=== PATIENT | male | born 1945 | race Caucasian/White ===

== ENCOUNTER 2023-02-20 12:16 | Emergency (ER) | payer MEDICARE, SELFPAY ==
[2023-02-20 12:29] VITALS: BP 163/73; PULSE 82; RESP 20; TEMP 38.1; O2SAT 92; BMI 31.6
--- NOTE | 2023-02-20 12:51 | CRLHL7_ITS ---
For Patients: As a result of the Century Cures Act, medical imaging exams and procedure reports are released immediately into your electronic medical record. You may view this report before your referring provider. If you have questions, please contact your health care provider. INDICATION: Fell on face TECHNIQUE: CT head without contrast. COMPARISON: None. FINDINGS: CSF spaces: Within normal limits for age. Brain parenchyma: No intracranial bleed or mass effect. Diffuse cerebral atrophy. Paredes-white differentiation is distinct. Skull base and calvarium: Left orbital floor fracture with depression of the orbital floor 4 millimeters (series 8, image 31). Small hematoma along the orbital floor. Atherosclerosis. IMPRESSION: 1. Left orbital floor fracture with depression of the orbital floor 4 millimeters and small hematoma along the orbital floor. 2. Diffuse cerebral atrophy. Please note that all CT scans at this facility use dose modulation, iterative reconstruction, and/or weight-based dosing when appropriate to reduce radiation dose to as low as reasonably achievable. Dictated by Elvin Rasheed MD @ 02/20/2023 2:12:28 PM (Electronically Signed)
--- NOTE | 2023-02-20 12:51 | CRLHL7_ITS ---
For Patients: As a result of the Cures Act, medical imaging exams and procedure reports are released immediately into your electronic medical record. You may view this report before your referring provider. If you have questions, please contact your health care provider. INDICATION: Fall on face TECHNIQUE: CT cervical spine without contrast. COMPARISON: None FINDINGS: Vertebrae: Alignment is normal. There are no fractures or suspicious bony lesions. Discs and facet joints: Facet hypertrophy C2-3 without significant stenosis. Facet hypertrophy C3-4 causing mild bilateral foraminal stenosis. Facet hypertrophy C4-5 without significant stenosis facet hypertrophy with disc space narrowing and posterior osteophytes at C5-6 causing mild bilateral foraminal stenosis. Facet hypertrophy with posterior osteophytes at C6-7 causing mild left foraminal stenosis facet hypertrophy C7-T1 without significant stenosis. Extraspinal findings: Ossicle in the nuchal ligament. Atherosclerosis. IMPRESSION: Multilevel degenerative changes cervical spine without evidence of cervical spine fracture. Please note that all CT scans at this facility use dose modulation, iterative reconstruction, and/or weight-based dosing when appropriate to reduce radiation dose to as low as reasonably achievable. Dictated by Elvin Rasheed MD @ 02/20/2023 2:16:19 PM (Electronically Signed)
--- NOTE | 2023-02-20 12:59 | ED_ITS ---
HPI - Head Injury General Chief complaint: Head Injury/Pain Stated complaint: Fall onto face Time Seen by Provider: 02/20/23 12:17 History of Present Illness HPI Narrative: Patient is a 77-year-old gentleman who is not on blood thinners and does not take aspirin who was trying to walk his dog while pushing his recycling bin across his yd proximally an hour ago. Patient stumbled and fell to the ground striking his face on the soft dirt and grass. Patient was able to get himself up and again when he was pushing the recycling bin with a dog in toe he stumbled on the driveway again falling anteriorly striking his face. He has abrasions over the forehead nose and zygomatic arch bilaterally. He has no epistaxis. He has no loose teeth. He does not feel like he bit his tongue. He did not lose consciousness. His saw him fall the 2nd time and helped him up and brought him to the emergency room where his GCS is 15. He is completely oriented and is able to answer questions. He has only minimal pain and has no neck pain. EKG upon arrival shows normal sinus rhythm without acute ST or T-wave changes. Related Data Home Medications Medication Instructions Recorded Confirmed amlodipine 10 mg tablet 10 mg PO DAILY 02/20/23 02/20/23 atenolol 50 mg tablet 50 mg PO DAILY 02/20/23 02/20/23 atorvastatin 20 mg tablet 20 mg PO DAILY 02/20/23 02/20/23 blood sugar diagnostic (OneTouch 02/20/23 02/20/23 Verio test strips) celecoxib 200 mg capsule 200 mg PO DAILY 02/20/23 02/20/23 metformin 500 mg tablet,extended 1,000 mg PO BID 02/20/23 02/20/23 release 24 hr Allergies Allergy/AdvReac Type Severity Reaction Status Date / Time Sulfa (Sulfonamide Allergy Verified 02/20/23 12:28 Antibiotics) tetanus toxoid, adsorbed Allergy Verified 02/20/23 12:28 Review of Systems Status of ROS: Reports: 10 or more systems reviewed and unremarkable except as noted in History and below [facility] Medical History Hyperlipidemia ?E78.5 - Hyperlipidemia, unspecified (ICD-10) Diabetes mellitus ?E11.9 - Type 2 diabetes mellitus without complications (ICD-10) Hypertension ?I10 - Essential (primary) hypertension (ICD-10) Social History Smoking Status: Former smoker Do you use any of these nicotine containing products: None Second hand tobacco smoke exposure: No How often do you have a drink containing alcohol: monthly or less How often do you have six or more drinks on one occasion: Never AUDIT-C Alcohol total score: 1 Non-prescribed substance use: denies use service: No Exam Narrative: Exam Narrative: EXAM GENERAL: Patient appears comfortable and well. Does appear to be leftward deviation of his nose. EYES: No scleral icterus. ENT: Tympanic membranes and oropharynx normal. THYROID: no thyroid nodules or thyromegaly. LYMPH: No supraclavicular or cervical lymphadenopathy. SKIN: Numerous abrasions and contusions noted on the face nose cheeks and forehead. EXT: No dependent lower extremity pedal edema. HEART: Regular rate and rhythm with no murmurs, rubs, or gallops. LUNGS: Clear to auscultation bilaterally with no crackles or wheezes. ABD: Soft, non tender, non distended. PSYCH: Good eye contact, speech is not pressured. Const: Vital Signs, click to edit/add: Vital Signs - 24 hr 02/20/23 12:29 02/20/23 14:02 02/20/23 14:32 Temperature 100.6 F H Pulse Rate [Pulse Oximeter] 82 Respiratory Rate 20 Blood Pressure 186/80 H 168/80 H Blood Pressure [Ri ght Upper Arm] 163/73 H Pulse Oximetry 92 Oxygen Delivery Me thod Room Air Course Course ED Course: Patient states he is allergic to tetanus shot. He is seen and found to be in no acute distress with various abrasions on his face. I did were CT head and neck and I reviewed his EKG. Vital Signs Vital signs: Initial Vital Signs Temperature 100.6 F H 02/20/23 12:29 Temperature Source Temporal Artery Scan 02/20/23 12:29 Pulse Rate 82 02/20/23 12:29 Pulse Rhythm Regular 02/20/23 12:29 Respiratory Rate 20 02/20/23 12:29 Blood Pressure 163/73 H 02/20/23 12:29 Blood Pressure Mean 103 02/20/23 12:29 Blood Pressure Position Supine 02/20/23 12:29 Pulse Oximetry 92 02/20/23 12:29 Oxygen Delivery Method Room Air 02/20/23 12:29 Vital Signs Temperature 100.6 F H 02/20/23 12:29 Pulse Rate 82 02/20/23 12:29 Respiratory Rate 20 02/20/23 12:29 Blood Pressure 163/73 H 02/20/23 12:29 Pulse Oximetry 92 02/20/23 12:29 Oxygen Delivery Method Room Air 02/20/23 12:29 Temperature 100.6 F H 02/20/23 12:29 Pulse Rate 82 02/20/23 12:29 Respiratory Rate 20 02/20/23 12:29 Blood Pressure 168/80 H 02/20/23 14:32 Pulse Oximetry 92 02/20/23 12:29 Oxygen Delivery Method Room Air 02/20/23 12:29 MDM - Head Injury MDM Narrative Medical decision making narrative: Patient is a 69-year-old gentleman who stumbled twice him walking his dog while pushing his recycling bin striking his face. Patient's EKG shows sinus rhythm. I do not believe he needs any laboratory studies as he is hemodynamically stable. He did have a negative cervical spine CT head CT shows a small orbital fracture on the left with only for 4 mm displacement. Patient has no pain with movement of his I and no entrapment. Patient states he is allergic to tetanus shot. He does have a number of abrasions that were cleaned. I did ask that he follow-up with his doctor early next week to consider maxillofacial consult for his ocular fractures an outpatient. Otherwise symptomatic treatment follow-up as described. Does not appear to have any palpitations or medical issues that led to his fall he simply stumbled while trying to manage his dog and his recycling. Differential Diagnosis Differential diagnosis: Likely concussion without loss of consciousness, epidural hematoma, closed head injury, subarachnoid hematoma, postconcussion syndrome, subdural hematoma and concussion with loss of consciousness Discharge Plan Discharge Clinical Impression: Orbital fracture Patient Disposition: Home, Self-Care Condition: Stable Instructions: Facial Fracture (ED) Additional Instructions: Symptomatic treatment of abrasions Follow-up with your doctor next week to discuss maxillofacial follow-up. Activity Level: No Restrictions Discharge Diet: Regular Prescriptions: No Action celecoxib 200 mg capsule 200 mg PO DAILY atorvastatin 20 mg tablet 20 mg PO DAILY (DME) OneTouch Verio test strips Strip 1 strip MISCELLANEOUS DAILY amlodipine 10 mg tablet 10 mg PO DAILY metformin 500 mg tablet extended release 24 hr 1,000 mg PO BID atenolol 50 mg tablet 50 mg PO DAILY Follow Up/Referrals: Arturo Brown MD [Primary Care Provider] - Stand Alone Forms: [employer] Info Instructions
[2023-02-20 14:02] VITALS: BP 186/80
[2023-02-20 14:32] VITALS: BP 168/80
[2023-02-20 14:52] VITALS: PULSE 73; O2SAT 94
[2023-02-20 14:54] VITALS: BP 161/82
== END 2023-02-20 14:57 | disposition home or self-care (01) ==
PROVIDERS: Emergency Provider Internal Medicine; PCP Family Medicine
DX: S02.85XA Fracture of orbit, unspecified, initial encounter for closed fracture (principal); W01.198A Fall on same level from slipping, tripping and stumbling with subsequent striking against other object, initial encounter; Y93.K1 Activity, walking an animal
CPT/HCPCS: 70450; 72125; 93005; 99283; 99285

== ENCOUNTER 2024-08-30 15:02 | Emergency (ER) | payer MEDICARE, SELFPAY ==
--- OUTSIDE RECORDS SUMMARY | 2024-08-30 15:05 | XMS_ITS | Clinical Summary ---
Author Organization [facility] Address [address] [place] [id number] Care Team Providers Care Microbiology Quality Control Technician Name Role Phone Arturo Brown MD Primary Care Provider Allergies Active Allergy Reactions Criticality Noted Date Comments Codeine 02/16/2007 Sulfa (Sulfonamide Antibiotics) 02/16/2007 Tetanus Immune Globulin Nausea Only,Fever 04/03 Flu like symptoms Medications lancets 33 gauge miscIndications:di abetes mellitus As directed. For testing blood sugars at home daily Indications: Diabetes Mellitus 100 Each 12 7 Active CPAPIndications:OS A (obstructive sleep apnea) CPAP machine for home use at pressure: 5-16 cmw , Heated humidifier x 1 q 5 yr, Humidifier chamber x 1 q 6 mo, Full face mask x1 q 3mos, with cushion x 1 q mo, Heated tubing x 1 q 3 mo, Headgear x 1 q 6 mo, Filters: Disposable x 2 q mo non-disposable filters x1 q 6mo, Length of Need: 99 months, Frequency of use: Daily 1 Each 11 2 Active blood sugar diagnostic (OneTouch Verio test strips) stripIndications:T ype 2 diabetes mellitus without complication, without long-term current use of insulin (HC) USE TO TEST BLOOD GLUCOSE ONCE DAILY DIRECTED 100 Each 3 4 Active amLODIPine (NORVASC) 10 mg tabletIndications: Hypertension, unspecified type TAKE ONE TABLET BY MOUTH EVERY DAY 90 Tablet 3 4 Active atenoloL (TENORMIN) 50 mg tabletIndications: Hypertension, unspecified type TAKE ONE TABLET BY MOUTH EVERY DAY 90 Tablet 3 4 Active atorvastatin (LIPITOR) 20 mg tabletIndications: Mixed hyperlipidemia Take 1 Tablet (20 mg) by mouth once daily. 90 Tablet 3 4 Active celecoxib (CELEBREX) 200 mg capsuleIndications :Hip pain, right Take 1 Capsule (200 mg) by mouth once daily with a meal. 90 Capsule 3 4 Active metFORMIN (GLUCOPHAGE XR) 500 mg Extended-Release tabletIndications: Controlled type 2 diabetes mellitus without complication, without long-term current use of insulin (HC) Take 2 Tablets (1,000 mg) by mouth once daily with evening meal. 180 Tablet 1 5 Active Active Problems Problem Noted Date Diagnosed Date Stress due to illness of family member; [facility] 06/20/2023 Closed fracture of orbit wit h routine healing, subsequent encounter 06/20/2023 Overweight 11/20/2020 Type 2 diabetes mellitus wit h hyperglycemia, without long-term current use of insulin 07/13/2020 BARBARA (obstructive sleep apnea) 03/14/2019 Benign non-nodular prostatic hyperplasia with lower urinary tract symptoms 09/16/2016 Essential hypertension 02/18/2011 Mixed hyperlipidemia 02/18/2011 Resolved Problems Problem Noted Date Diagnosed Date Resolved Date Type 2 diabetes mellitus wit hout complication, without long-term current use of insulin 06/23/2017 12/03/2021 Encounters Date Type Department Care Team Description 06/28/2024 8:25 AM REEL TENDER Office Visit [facility] [address] [place] [address] Arturo Brown MD Diabetes (6 month follow up) 06/28/2024 8:00 AM REEL TENDER Orders Only [facility] [address] [place] [address] Lab, [place] Lab 06/28/2024 Travel 06/24/2024 Travel 06/16/2024 Telephone [facility] [address] [place] [address] Arturo Brown MD Lab (Lab orders Needed) from Last 3 Months Immunizations Immunization Administration Dates Next Due AMB INFLUENZA IIV3 (AGE 65+ YRS) PF (Flu Clinic Only) 03/12/2017 AMB Influenza, IIV3 (Age >=3 years)(Flu Clinic Only) 02/26/2012 Amb Influenza, Inact (High-d ose) (Flu Clinic Only) 03/07/2016,03/09/2014 COVID-19 VACCINE SPIKEVAX (M ODERNA 50MCG/0.5ML) 12YO+ PFS 04/14/2023 COVID-19 vaccine (Moderna 50 mcg/0.5mL) 12YO+ BIVALENT PF, MDV 02/26/2022 COVID-19 vaccine (Pfizer-Bio NTech 30mcg/0.3mL) 12YO+ CORNELIO-SUCROSE PF, MDV 09/18/2021 COVID-19 vaccine (Pfizer-Bio NTech 30mcg/0.3mL) PF, MDV 07/11/2020,06/20/2020 Influenza, High-dose Inactivated 03/07/2016,03/12,03/09/2014 Influenza, High-dose Quadriv alent Inactivated 03/09/2021,03/28/2020 Influenza, IIV3 (Age 6-35 mos) 02/18/2011,2008 Influenza, IIV3 (Age >=3 years) 03/15/20 13,02/26/2012,02/18/2011,02/26,04/24/2009,02/17/2008,02/16/2007 ,04/16/2006,03/09/2003 Influenza, Inactivated AIIV4 (Age 65+ Years) Preserv Free 04/14/2023,05/08/2022,03/08/2022 Influenza, Inactivated IIV3 (Age 65+ Years) Preserv Free 02/12/2024,03/09/2019,03/26/2018 Pneumococcal Conj 20-valent (Prevnar 20) 06/07/2022 Pneumococcal Poly,23-Valent (Pneumovax) 02/18/2011 Pneumococcal conj 13-Valent (Prevnar 13) 03/16/2014 RSV, Recombinant ADJ Reconst ituted (Arexvy 120MCG/0.5mL) 04/24/2023 Td (Age >=7 Years) 12/21/1997 Zoster (Shingrix-RZV, recombinant) 06/24/2022, Zoster (Zostavax-ZVL, live) 02/16/2007 Family History Medical History Relation Name Comments Heart Disease Father cabg at 57, d6 4 Hyperlipidemia Father Hypertension Father Diabetes Maternal Grandmother Hyperlipidemia Mother Other Mother alzheimer demen tia, d80's Heart attack Paternal Grandfather fatal m id 50's Diabetes type II Paternal Grandmother Cancer-colon No Family History Cancer-prostate No Family History Relation Name Status Comments Father Maternal Grandmother Mother Paternal Grandfather Paternal Grandmother Social History Tobacco Use Types Packs/Day Years Used Date Smoking Tobacco: Former Cigarettes Q uit: 05/12/1983 Smokeless Tobacco: Never Tobacco Cessation:Counseling Given: No Alcohol Use Standard Drinks/Week Comments Not Currently 3 (1 standard drink = 0.6 oz pur e alcohol) PHQ-2 Answer Date Recorded PHQ-2 TOTAL SCORE 1 12/25/2023 Social Connections Answer Date Recorded Do you often feel lonely or isolated from those around you? 0 12/25/2023 Financial Resource Strain Answer Date R ecorded Difficulty of Paying Living Expenses 3 03/04/2023 Difficulty of Paying Living Expenses Not on file 03/04/2023 Food Insecurity Answer Date Recorded Do you worry your food will run out before you are able to buy more? 1 12/25/2023 Transportation Needs Answer Date Record ed Does lack of transportation keep you from medica l appointments? 1 12/25/2023 Does lack of transportation keep you from work, meetings or getting things that you need? 1 12/25/2023 Housing Stability Answer Date Recorded What is your housing situation today? 1 12/25/2023 Utilities Answer Date Recorded Do you have trouble paying f or utilities (for example, heat, electricity, water, phone)? 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 Not on file Not on file Obstetrics History Last Filed Vital Signs Vital Sign Reading Time Taken Comments Blood Pressure 122/62 06/28/2024 8:45 AM REEL TENDER Pulse 48 06/28/2024 8:36 AM REEL TENDER Temperature 36.7 C (98 F) 12/25/2023 9:33 AM CDT Respiratory Rate 18 03/19/2023 12:01 PM REEL TENDER Oxygen Saturation 93% 06/28/2024 8:36 AM REEL TENDER Inhaled Oxygen Concentration - - Weight 108.9 kg (240 lb) 06/28/2024 8:36 AM REEL TENDER Height 182 cm (5' 11.65) 12/25/2023 9:33 AM CDT Body Mass Index 32.86 12/25/2023 9:33 AM CDT Plan of Treatment Upcoming Encounters Date Type Department Care Team (Late st Contact Info) Description 12/20/2024 7:45 AM CDT Orders Only [facility] [address] [place] [address] [place], [place] 12/27/2024 8:00 AM CDT Office Visit [facility] [address] [place] [address] Arturo Brown MD [address] [place] [address] Health Maintenance Due Date Last Done Comments COVID-19 vaccine series ( season) 2024 02/12/2024, 09/18/2023, 04/14/2023, Additional history exists BMI (ht and wt on same day) for age 18+ 12/24/2024 12/25/2023, 12/18/2022, 12/03/2021, Additional history exists Depression screening for age 12+ 12/24/2024 12/25/2023, 12/18/2022, 08/01/2021, Additional history exists Medicare Wellness for age 65+ 12/25/2024, 12/18/2022, 08/01/2021, Additional history exists Pneumococcal series for age 50+ Completed 06/07/2022, 03/16/2014, 02/18/2011 Zoster (shingles) series for age 50+ Completed 06/24/2022, 03/28/2020, 02/16/2007 RSV vaccine for adults or Completed 04/24/2023 Influenza Vaccine Completed 02/12/2024, , 05/08/2022, Additional history exists Procedures Procedure Name Priority Date/Time Associated Diagnosis Comments HEMOGLOBIN A1C MONITORING (POCT) Routine 06/28/2024 8:17 AM REEL TENDER Type 2 diabetes mellitus with hyperglycemia, without long-term current use of insulin (HC) from Last 3 Months Results * (ABNORMAL) HEMOGLOBIN A1C MONITORING (POCT) (06/28/2024 8:17 AM REEL TENDER) POC HEMOGLOBIN A1C 7.3(H) <6.0 % OF TOTAL HGB [facility] Comment: Any point of care results exhibiting inconsistency with the patient's clinical status should be repeated using a different testing method. Blood BLOOD SPECIMEN / Unknown 06/28/2024 8:17 AM REEL TENDER 06/28/2024 8:23 AM REEL TENDER Arturo Brown MD CHEMISTRY Final Result [facility] [address] [place] [address], [facility] [address] [place] [address] from Last 3 Months Insurance [employer] MEDICARE ADVANTAGE MR MEDICARE PART A HB ONLY Care Teams Microbiology Quality Control Technician Relationship Specialty Start Date End Date Arturo Brown MD [address] [place] [address] PCP - General Family Practice 06/19/20
[2024-08-30 15:11] VITALS: BP 185/77; PULSE 76; RESP 16; TEMP 36.7; O2SAT 96; BMI 32.1
--- NOTE | 2024-08-30 15:51 | ED.GENADULT ---
HPI - General Adult General Chief complaint: Fall/Minor Trauma Stated complaint: fell, pain in hip and shoulder blades Time Seen by Provider: 08/30/24 15:07 History of Present Illness HPI narrative: Arrives with complaints of left shoulder blade area pain after a fall [employer]. Reports he was walking his dog and lost his footing, causing him to fall forward and then onto his right side in the grass. Denies hitting his head or LOC , denies other pain or injuries related to the fall, does endorse some right hip pain that was present prior to the fall. Alert and oriented, ABCs intact. 79-year-old man presenting to the emergency department all Notes to be walking on notably unsteady ground on the grass. He was getting little nervous about it. Underlying history of bilateral lower extremity neuropathy which makes him a little more prone to instability. Appears to be having spasms of pain in the left posterior shoulder area. He after this fall he thought he was mostly okay. Was assisted with what is described is rather intense A/B duction and traction of the left arm applied by spouse to get him to standing position Related Data Home Medications ?Medication ?Instructions ?Recorded ?Confirmed amlodipine 10 mg tablet 10 mg PO DAILY 02/20/23 08/30/24 atenolol 50 mg tablet 50 mg PO DAILY 02/20/23 08/30/24 atorvastatin 20 mg tablet 20 mg PO DAILY 02/20/23 08/30/24 blood sugar diagnostic (OneTouch 02/20/23 01/05/24 Verio test strips) celecoxib 200 mg capsule 200 mg PO DAILY 02/20/23 08/30/24 metformin 500 mg tablet,extended 1,000 mg PO BID 02/20/23 08/30/24 release 24 hr Allergies Allergy/AdvReac Type Severity Reaction Status Date / Time codeine Allergy Verified 08/30/24 15:09 Sulfa (Sulfonamide Allergy Verified 08/30/24 15:09 Antibiotics) tetanus toxoid, adsorbed Allergy Verified 08/30/24 15:09 Review of Systems Status of ROS: Reports: 6 or more systems reviewed and unremarkable except as noted in History and below [facility] Medical History BARBARA (obstructive sleep apnea) ?G47.33 - Obstructive sleep apnea (adult) (pediatric) (ICD-10) Moderate aortic stenosis ?I35.0 - Nonrheumatic aortic (valve) stenosis (ICD-10) Hyperlipidemia ?E78.5 - Hyperlipidemia, unspecified (ICD-10) Diabetes mellitus ?E11.9 - Type 2 diabetes mellitus without complications (ICD-10) Hypertension ?I10 - Essential (primary) hypertension (ICD-10) Surgical History History of pilonidal cyst ?Z87.2 - Personal history of diseases of the skin and subcutaneous tissue (ICD-10) H/O transurethral resection of prostate ?Z98.890 - Other specified postprocedural states (ICD-10) ?Z90.79 - Acquired absence of other genital organ(s) (ICD-10) Social History Narrative: former smoker (1983) Smoking Status: Former smoker What tobacco products do you use: cigarettes Smoking quit date/years: >15 years ago Do you use any of these nicotine containing products: None Second hand tobacco smoke exposure: No How often do you have a drink containing alcohol: monthly or less How often do you have six or more drinks on one occasion: Never AUDIT-C Alcohol total score: 1 Non-prescribed substance use: denies use service: No Exam Narrative: Exam Narrative: Breathing easily. GCS 15. Cranial nerves 2-12 intact. Pupils 3 mm and equal. Head is atraumatic. Neck is supple nontender. Reproduction of pain to deep palpation in the inferior medial aspect of the scapula. This however is unpredictable. Pain seems to be most exacerbated with small amount of A/B duction at about 30? of his arm with axial pressure on it. He has good strength to resisted internal external rotation of the shoulder. Empty can testing is negative. Just experiences evident intermittent spasms in the shoulder blade area. Clavicles normal. Abdomen is soft and nontender. No injuries to his legs. Const: Vital Signs, click to edit/add: Vital Signs - 24 hr 08/30/24 15:11 08/30/24 17:38 Temperature 98.1 F Pulse Rate [Pulse Oximeter] 76 70 Respiratory Rate 16 18 Blood Pressure [Ri ght Upper Arm] 185/77 H 160/80 H Pulse Oximetry 96 Oxygen Delivery Me thod Room Air Documenting provider has reviewed patient's vital signs: yes Course Vital Signs Vital signs: Initial Vital Signs Temperature 98.1 F 08/30/24 15:11 Temperature Source Temporal Artery Scan 08/30/24 15:11 Pulse Rate 76 08/30/24 15:11 Respiratory Rate 16 08/30/24 15:11 Blood Pressure 185/77 H 08/30/24 15:11 Blood Pressure Mean 113 H 08/30/24 15:11 Pulse Oximetry 96 08/30/24 15:11 Oxygen Delivery Method Room Air 08/30/24 15:11 Vital Signs Temperature 98.1 F 08/30/24 15:11 Pulse Rate 76 08/30/24 15:11 Respiratory Rate 16 08/30/24 15:11 Blood Pressure 185/77 H 08/30/24 15:11 Pulse Oximetry 96 08/30/24 15:11 Oxygen Delivery Method Room Air 08/30/24 15:11 Temperature 98.1 F 08/30/24 15:11 Pulse Rate 70 08/30/24 17:38 Respiratory Rate 18 08/30/24 17:38 Blood Pressure 160/80 H 08/30/24 17:38 Pulse Oximetry 96 08/30/24 15:11 Oxygen Delivery Method Room Air 08/30/24 15:11 Medications Administered Medications: Discontinued Medications Generic Name Dose Route Start Last Admin Trade Name Josiah PRN Reason Stop Dose Admin Acetaminophen 1,000 mg 08/30/24 16:04 08/30/24 16:14 Acetaminophen 500 Mg Tablet PO 08/30/24 16:05 1,000 mg ONCE ONE Administration Medical Decision Making MDM Narrative Medical decision making narrative: Discussed pain management. Spouse notes that he typically takes acetaminophen. They would like to try that. Given 1 g of acetaminophen. This does appear to be a trip and fall event. Does not appear to have sustained injury beyond this left shoulder area and may not actually have occurred in the fall itself. Anticipate shoulder strain with some muscle spasm possible labral tear? Will begin with x-rays though of the shoulder. Little bit concerned about giving him an arm sling that I would anticipate needing just with his underlying neuropathy. Generally well at rest it is with some movements that exacerbates his pain. Three-view x-ray of the left shoulder independently reviewed by me with some small radiopaque chips but nothing appears to be new. Radiology over-read below Indication: FALL; PAIN WITH ABDUCTION AND SPASMS OF MID SCAPULAR AREA. PAIN STARTED WHEN GRABBED LEFT ARM TO HELP HIM UP. Technique: Left shoulder, 3 views. Comparison: None. Findings: Bones: Alignment is normal. No fractures or bone lesions. Joint spaces: [id number] degenerative changes of the left shoulder.. Soft tissues: Mild soft tissue swelling.. Impression: No sign of acute injury. Dictated by Tracy Wen MD @ 08/30/2024 5:01:40 PM Generally well during time in the ER. I think will just need to rest the shoulder a little bit and reassess for need for further evaluation/cares. See patient discharge plan for further discussion Consider using this arm sling to rest your shoulder over the next few days or week. Be seen again if pain does not seem to be settling down through the week. For now can take up to 1000 mg of acetaminophen per dose as discussed. You might consider icing your shoulder area a couple of times daily over the next few days. Discharge Plan Discharge Clinical Impression: Left shoulder strain, Muscle spasm Patient Disposition: Home w/ Parent or Adult Condition: Improved Additional Instructions: Consider using this arm sling to rest your shoulder over the next few days or week. Be seen again if pain does not seem to be settling down through the week. For now can take up to 1000 mg of acetaminophen per dose as discussed. You might consider icing your shoulder area a couple of times daily over the next few days. Prescriptions: No Action celecoxib 200 mg capsule 200 mg PO DAILY atorvastatin 20 mg tablet 20 mg PO DAILY (DME) OneTouch Verio test strips Strip 1 strip MISCELLANEOUS DAILY amlodipine 10 mg tablet 10 mg PO DAILY metformin 500 mg tablet extended release 24 hr 1,000 mg PO BID atenolol 50 mg tablet 50 mg PO DAILY Follow Up/Referrals: Arturo Brown MD [Primary Care Provider] - Stand Alone Forms: Backchat Info Instructions
--- NOTE | 2024-08-30 16:03 | CRLHL7_ITS ---
For Patients: As a result of the Century Cures Act, medical imaging exams and procedure reports are released immediately into your electronic medical record. You may view this report before your referring provider. If you have questions, please contact your health care provider. Indication: FALL; PAIN WITH ABDUCTION AND SPASMS OF MID SCAPULAR AREA. PAIN STARTED WHEN GRABBED LEFT ARM TO HELP HIM UP. Technique: Left shoulder, 3 views. Comparison: None. Findings: Bones: Alignment is normal. No fractures or bone lesions. Joint spaces: [id number] degenerative changes of the left shoulder.. Soft tissues: Mild soft tissue swelling.. Impression: No sign of acute injury. Dictated by Tracy Wen MD @ 08/30/2024 5:01:40 PM (Electronically Signed)
--- OUTSIDE RECORDS SUMMARY | 2024-08-30 16:10 | XMS_ITS | Clinical Summary ---
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 Role Phone Arturo Brown MD Primary [...] Department Care Team Description 06/28/2024 8:25 AM CANE BURNER Office Visit [facility] [address] [place] [address] Arturo Brown MD Diabetes (6 month follow up) 06/28/2024 8:00 AM CANE BURNER Orders Only [facility] [address] [place] [address] Lab, [place] [facility] 06/28/2024 Travel 06/24/2024 Travel 06/16/2024 Telephone [facility] [address] [place] [address] [address] Arturo Brown MD Lab (Lab orders Needed) [...] on file Legal Sex Male 6:27 AM CANE BURNER Gender Identity Not on file Sexual Orientation Not on file 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 Not on file Not on file Obstetrics History Last Filed Vital Signs Vital Sign Reading Time Taken Comments Blood Pressure 122/62 06/28/2024 8:45 AM CANE BURNER Pulse 48 06/28/2024 8:36 AM CANE BURNER Temperature 36.7 C (98 F) 12/25/2023 9:33 AM CDT Respiratory Rate 18 03/19/2023 12:01 PM CANE BURNER Oxygen Saturation 93% 06/28/2024 8:36 AM CANE BURNER Inhaled Oxygen Concentration - - Weight 108.9 kg (240 lb) 06/28/2024 8:36 AM CANE BURNER Height 182 cm (5' 11.65) 12/25/2023 9:33 AM CDT Body Mass Index 32.86 12/25/2023 9:33 AM CDT Plan of Treatment Upcoming Encounters Date Type Department Care Team (Late st Contact Info) Description 12/20/2024 7:45 AM CDT Orders Only [facility] [address] [place] [address] [place], [place] 12/27/2024 8:00 AM CDT Office Visit [facility] [address] [place] [address] Arturo Brown MD [address] [place] [address] Health Maintenance Due Date Last Done Comments [...] A1C MONITORING (POCT) Routine 06/28/2024 8:17 AM CANE BURNER Type 2 diabetes mellitus with hyperglycemia, without long-term current use of insulin (HC) from Last 3 Months Results * (ABNORMAL) HEMOGLOBIN A1C MONITORING (POCT) (06/28/2024 8:17 AM CANE BURNER) POC HEMOGLOBIN A1C 7.3(H) <6.0 % OF TOTAL HGB [facility] Comment: Any point of care results exhibiting inconsistency with the patient's clinical status should be repeated using a different testing method. Blood BLOOD SPECIMEN / Unknown 06/28/2024 8:17 AM CANE BURNER 06/28/2024 8:23 AM CANE BURNER Arturo Brown MD CHEMISTRY Final Result [facility] [address] [place] [address], [facility] [address] [place] [phone] from Last 3 Months Insurance [employer] MEDICARE ADVANTAGE MR MEDICARE PART A HB ONLY Care Teams Snuff Packing Machine Operator Relationship Specialty Start Date End Date Arturo Borwn MD [address] [place] [address] PCP - General Family Practice 06/19/20
[2024-08-30] MEDS: ACETAMINOPHEN 500 MG TABLET 1000 MG PO (16:14)
[2024-08-30 17:38] VITALS: BP 160/80; PULSE 70; RESP 18
== END 2024-08-30 17:40 | disposition home or self-care (01) ==
PROVIDERS: Emergency Provider Family Medicine; PCP Family Medicine
DX: S46.912A Strain of unspecified muscle, fascia and tendon at shoulder and upper arm level, left arm, initial encounter (principal); W01.0XXA Fall on same level from slipping, tripping and stumbling without subsequent striking against object, initial encounter
CPT/HCPCS: 73030; 99283; 99284; A9270

== ENCOUNTER 2025-03-15 10:00 | Outpatient (RCR) | payer MEDICARE, SELFPAY | END 2025-03-17 13:44 | disposition home or self-care (01) | PROVIDERS: PCP Family Medicine; Visit Provider Family Medicine | DX: R26.81 Unsteadiness on feet (principal); M25.551 Pain in right hip; Z51.89 Encounter for other specified aftercare | CPT/HCPCS: 97110; 97112; 97162 ==